=== PATIENT | female | born 2000 | race African-American/Black ===

== ENCOUNTER 2020-03-06 09:40 | Emergency (ER) | payer OTHER, SELFPAY ==
[2020-03-06 10:04] VITALS: BP 129/76; PULSE 97; RESP 16; TEMP 37.7; O2SAT 99; BMI 26.6
--- NOTE | 2020-03-06 10:10 | ED.FEMALEGU ---
HPI - Female Genitourinary General Chief complaint: Upper Respiratory Symptoms Stated complaint: Covid Like symtoms, Possible UTI Time Seen by Provider: 03/06/20 09:56 Source: patient Mode of arrival: Ambulatory Limitations: no limitations History of Present Illness HPI Narrative: Patient is a 19-year-old female who presents with headache and fever and hematuria. She started having body aches and fever 2 days ago. She had a minor sore throat as well. No cough. She started having hematuria yesterday along with dysuria and urinary frequency. She has bilateral flank pain as well. Than some minor abdominal cramping. She is currently afebrile. MD Complaint: dysuria Quality: Burning and Cramping Duration: constant Relieving factors: none Exacerbating factors: none Related Data Previous Rx's Medication Instructions Recorded sulfamethoxazole-trimethoprim 1 tab PO BID 5 Days #10 tab 03/06/20 [Bactrim DS] Review of Systems Review of Systems ROS Unobtainable: All systems reviewed & are unremarkable except as noted in HPI and below Constitutional Constitutional: Reports body ache(s), Reports chills and Reports fever(s) Eyes Eyes: Denies change in vision, Denies eye discharge, Denies irritation and Denies loss of vision Cardiovascular Cardiovascular: Denies chest pain, Denies irregular heart rhythm, Denies lightheadedness, Denies palpitations, Denies dyspnea, Denies dyspnea on exertion and Denies orthopnea Respiratory Respiratory: Denies cough, Denies dyspnea, Denies dyspnea on exertion and Denies wheezing Gastrointestinal Gastrointestinal: Reports as per HPI and Reports cramping Genitourinary Genitourinary: Reports as per HPI Genitourinary: Reports as per HPI Musculoskeletal Musculoskeletal: Denies back pain and Reports myalgias Integumentary/Breasts Skin/Breast: Denies pruritus, Denies erythema, Denies rash and Denies wounds Neurologic Neurologic: Denies loss of vision Endocrine Endocrine: Denies palpitations Allergic/Immunologic Allergic/Immunologic: Denies wheezing Patient History Medical History Patient denies medical problems (Acute) alcohol intake frequency: 0-2 drinks per day Substance Use Type: does not use Exam Initial Vital Signs Initial Vital Signs: Vital Signs Temperature 100 F H 03/06/20 10:04 Pulse Rate 97 H 03/06/20 10:04 Respiratory Rate 16 03/06/20 10:04 Blood Pressure 129/76 03/06/20 10:04 Pulse Oximetry 99 03/06/20 10:04 GENERAL: Well-appearing, well-nourished and in no acute distress. HEENT: Head atraumatic,EOMI, pupils reactive, face symmetric, moist mucous membranes PHARYNX: No erythema, no tonsillar exudate, no cervical lymphadenopathy CARDIOVASCULAR: Regular rate and rhythm without murmurs, rubs or gallops. RESPIRATORY: Breath sounds equal bilaterally, no wheezes rales or rhonchi. ABDOMEN: Soft, nontender. Normoactive bowel sounds all 4 quadrants. No guarding or rebound. : Bilateral CVA tenderness EXTREMITIES: Normal range of motion, no clubbing or edema. Neurovascularly intact NEUROLOGICAL: Alert and oriented x4.Normal gait and speech. SKIN: Warm, dry, no laceration, no petechiae, no rashes or lesions. Course Orders Ordered: ED Orders 03/06/20 10:18 COVID19 -ED/INPAT/OR/L&D Stat Urine Microscopic Stat Vital Signs Vital signs: Vital Signs - 8 hr 03/06/20 10:04 Temperature 100 F H Pulse Rate 97 H Respiratory Rate 16 Blood Pressure 129/76 Pulse Oximetry 99 MDM - Female Genitourinary Lab Data Labs: Lab Results 03/06/20 03/06/20 Range/Units 10:18 10:18 Urine RBC 10-30/hpf H (0-5/HPF) Urine WBC 5-10/hpf H (0-5/HPF) Ur Squamous Epith Cells 5-10 /hpf H (0-5/HPF) Urine Bacteria Many (>30) H (None) Ur Culture Indicated? Cult not indicated COVID-19 PCR Negative (Negative) Point of Care Testing Test Results Negative Urine Dip Bedside Urine Glucose Negative Bedside Urine Bilirubin - Negative Bedside Urine Ketone - Negative Urine Specific [place] 1.015 Bedside Urine Occult Blood +++ Bedside Urine pH 8.0 Bedside Urine Protein +/- 15 Bedside Urine Urobilinogen +/- 1mg Bedside Urine Nitrite + Positive Bedside Urine Leukocytes ++ 125 Esterase MDM Narrative Medical decision making narrative: Patient signs and symptoms consistent with UTI urine positive for nitrates and hematuria. Co visit is negative will treat for UTI she overall does not appear septic Discharge Plan Departure Patient Disposition: Home Clinical Impression: UTI (urinary tract infection) Qualifiers: Urinary tract infection type: acute cystitis Hematuria presence: with hematuria Qualified Code(s): N30.01 - Acute cystitis with hematuria Discharge Date/Time: 03/06/20 11:01 Instructions: DI for Urinary Tract Infection (UTI) Activity Restrictions/Additional Instructions: *You have been diagnosed with UTI *What to do: Increase fluid intake fever control with Tylenol or Motrin *Continue to take medications as directed Bactrim 1 tablet twice a day for 5 days *Follow up with your primary care provider in 2-3 days *Return to ER if you should have increasing back pain, fever persistent nausea or vomiting unable to tolerate medication or any new, worsening or concerning symptoms Prescriptions: New sulfamethoxazole-trimethoprim [Bactrim DS] 800-160 mg tablet 1 tab PO BID 5 Days Qty: 10 RF: 0 Stand Alone Forms: Work Release Note
[2020-03-06 10:35] LABS: RBC Urine 10-30/HPF (0-5/HPF); WBC Urine 5-10/HPF (0-5/HPF)
[2020-03-06 10:36] LABS: Bacteria Urine Many (>30); Culture Indicated Urine Cult Not Indicated; Squamous Epithelial Cell Urine 5-10 /HPF (0-5/HPF)
[2020-03-06 10:46] LABS: COVID19 -Nasal RAPID Negative (Negative)
== END 2020-03-06 11:01 | disposition home or self-care (01) ==
PROVIDERS: Emergency Provider Emergency Medicine
DX: N30.01 Acute cystitis with hematuria (principal); R51.9 Headache, unspecified; R50.9 Fever, unspecified
CPT/HCPCS: 81003; 81015; 81025; 87635; 99282